=== PATIENT | female | born 1985 | race Caucasian/White ===

== ENCOUNTER 2018-09-20 15:26 | Emergency (ER) | payer OTHER ==
[2018-09-20 16:04] VITALS: BMI 22.0
--- NOTE | 2018-09-20 18:43 | OBHP ---
Datetime: 09/20/2018 16:50 IP Adm Impression: , intrauterine ; No Active Labor; Intact Membranes IP Admit Plan: Observation/Evaluation Admit Comment, IP Provider: Pt is a 33 yo F 34.1wk, KENZIE 10/31/18 based on reported LMP 01/01. Came to [facility] due to slipping and falling 2 hours before, she fell on an outstretched right hand, hit the right side of her abdomen and her right hip. Pt reports her hand absorbed most of the fall. Pt denies domestic abuse. She reports good movements. Denies vaginal bleeding, contractions, L OF, fevers, chills, chest pain, SOB, nausea, vomiting, diarrhea, constipation or dysuria. PNP: Dr. 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 Lungs: clear to auscultation bilaterally, no wheezing, rales or rhonchi Abdomen: gravid, No bruising on R abdomen noted Extremities: 1cm bruise on R ulnar aspect of wrist, full passive and active ROM of R arm and wris t, Strength and sensation 5/5 B/L UE, no edema Speculum/Bimanual- 0/0/-3 heart rate -130's, 6-25 moderate variability, category 1 [place]: occasional uterine activity A/P: -Pt is a 33 yo F 34.1wk, KENZIE 10/31/18 based on reported LMP 01/01/18. - Status Post fall - NST Reactive - Monitored up to 4 hours from the time of fall - Clinically Stable. -Observe in OB ED for 4 hours s/p fall -Continue to monitor heart rate -Regular diet -Reassess and monitor for any vaginal bleeding or changes in heart monitor Case reviewed and discussed with Attending -Ellie Arce- PGY1 Attending Note: 7:00pm Patient reassessed. NST Reactive. Plan: D/C Home Kicks count instructions given F/U with OB within 1 week. Labor instructions given. Pelvic Type - PN: Adequate Extremities - PN: Normal Abdomen - PN: Normal Back - PN: Normal Breast - PN: Not Done Lungs - PN: Normal Heart - PN: Normal Thyroid - PN: Not Done Neurologic - PN: Normal HEENT - PN: Normal General - PN: Normal FHR - Baseline A Provider: 130's Comments, ACOG Physical Exam: 1 cm Bruise on R ulnar aspect of wrist No bruising on R abdomen noted Full passive and active ROM of R arm and wrist. Strength and sensation 5/5 B/L UE No edema EGA AdmitDate IP: 34.1 IP Chief Complaint: Trauma/Fall NICHD Variability Prov Fetus A: Moderate 6-25bpm NICHD Accel Fetus A IP Provider: [id number] FHR Category Provider Fetus A: Category I NICHD Decel Fetus A IP Provider: None Genitourinary Exam: Not Done DTRs - PN: Not Done Datetime: 07/18/2018 14:50 IP Hx Assessment: The History has been Reviewed and is Current
[2018-09-20 22:52] VITALS: BP 105/61; PULSE 91; RESP 17; TEMP 97.7; O2SAT 100
== END 2018-09-20 18:49 | disposition home or self-care (01) ==
LOC: H.EROB2 15:26
DX: O26.93 Pregnancy related conditions, unspecified, third trimester (principal); Z04.3 Encounter for examination and observation following other accident; Z3A.34 34 weeks gestation of pregnancy